=== PATIENT | male | born 1950 | race Caucasian/White ===

== ENCOUNTER 2017-12-23 16:47 | Emergency (ER) | payer MEDICARE ==
[~2017-12-23] VITALS: Ht 180.3 cm; Wt 98.5 kg
[~2017-12-23 16:47] MED LIST: ASPI81TA82 PO; CHOL1CAP6 PO; FENO50TA PO; FISH100020 PO; LORTA5 PO; LOSA50TA PO; NIAC1TAB PO; PRIL40CA PO; TAMS0.4C67 PO; VITA100017 PO
[2017-12-23 16:48] VITALS: BP 162/90; PULSE 66; RESP 16; TEMP 97.6; O2SAT 97
[2017-12-23 17:21] LABS: AUTOMATED NEUTROPHIL # 5.8 TH/MM3 (1.8-7.7); BASOPHIL % 0.2 % (0.0-2.0); EOSINOPHIL # 0.1 TH/MM3 (0-0.4); EOSINOPHIL % 0.6 % (0.0-4.0); HEMOGLOBIN 15.1 GM/DL (13.0-17.0); LYMPH % 24.2 % (9.0-44.0); LYMPHOCYTE # 2.1 TH/MM3 (1.0-4.8); MEAN CELL VOLUME 85.1 FL (80.0-100.0); MEAN CORPUSCULAR HEMOGLOBIN 29.8 PG (27.0-34.0); MEAN PLATELET VOLUME 7.5 FL (7.0-11.0); MONO % 7.8 % (0.0-8.0); MONOCYTE # 0.7 TH/MM3 (0-0.9); NEUT % 67.2 % (16.0-70.0); PLATELET COUNT 215 TH/MM3 (150-450); RED BLOOD COUNT 5.05 MIL/MM3 (4.50-5.90); RED CELL DISTRIBUTION WIDTH 13.6 % (11.6-17.2); WHITE BLOOD COUNT 8.7 TH/MM3 (4.0-11.0)
[2017-12-23 17:29] LABS: INTERNATIONAL NORMALIZED RATIO 1.1 RATIO; PROTHROMBIN TIME - PATIENT 11.1 SEC (9.8-11.6)
[2017-12-23 17:46] LABS: CALCIUM 9.4 MG/DL (8.5-10.1); CREATININE 1.21 MG/DL (0.60-1.30)
[2017-12-23] MEDS ORDERED: SODIUM CHLOR 0.9% 1000 ML INJ 1,000 ML IV SCH (18:33)
--- NOTE | 2017-12-23 18:39 | PD ---
HPI Chief Complaint: GI Complaint Time Seen by Provider: 18:32 Travel History International Travel<30 days: No Contact w/Intl Traveler<30days: No Traveled to known affect area: No History of Present Illness HPI 67-year-old male presents emergency department with ongoing and worsening left lower quadrant pain. Patient reports that he has had this pain intermittently over the past 4 days. Patient states he was recently seen by his senior solutions architect for a preop for a colonoscopy, when he does ride his difficulty to the GI specialist he was started on Cipro 500 mg daily as well as metronidazole 500 mg twice daily for presumed diverticulitis. Patient states this was 2 days ago. Patient states since that time the pain is continued to be bothersome and seemingly worsening. He has decreased appetite and vomiting 1 yesterday. He states he is still moving his bowels which is somewhat soft but he is not eating much as eating makes his pain worse. Patient denies any significant fever or chills. Pain is localized to the left anterior lower quadrant of the abdomen. Pain is currently about 8 out of 10. It was worse riding in the car. And he has no known drug allergies. PFSH Past Medical History Arthritis: Yes Cancer: No Cardiovascular Problems: Yes (HTN) High Cholesterol: Yes Coronary Artery Disease: Yes Endocrine: No GERD: Yes Genitourinary: No Hypertension: Yes Inguinal Hernia: Yes Neurologic: No Psychiatric: No Reproductive: No Respiratory: No Triglycerides - High: Yes Ulcer: Yes Past Surgical History Abdominal Surgery: Yes (BILATERAL INGUINAL HERNIA REPAIRS) Oral Surgery: Yes (uvula removed) Pacemaker: No Social History Alcohol Use: No Tobacco Use: No Substance Use: No Allergies-Medications (Allergen,Severity, Reaction): Coded Allergies: No Known Allergies (Unverified , 02/20/15) Reported Meds & Prescriptions Reported Meds & Active Scripts Active Hydrocodone/Acetaminophen 5 mg/325 mg 1 Tab Tab 1-2 Tab PO Q4H PRN Reported Vitamin C (Ascorbic Acid) 1,000 Mg Tab 1,000 Mg PO DAILY Fish Oil (Aspen-3 Fatty Acids) 1,000 Mg Cap 1,000 Mg PO Vitamin D-3 (Cholecalciferol) 1,000 Unit Cap 2 Cap PO DAILY Aspir-81 (Aspirin) 81 Mg Tab 81 Mg PO DAILY Losartan Potassium 50 MG (Losartan Potassium) 50 Mg Tab 50 Mg PO DAILY Prilosec 40 mg cap (Omeprazole) 40 Mg Cap 40 Mg PO DAILY Niacin ER (Niacin (Antihyperlipidemic)) 500 Mg Tab 500 Mg PO DAILY Tricor (Fenofibrate) 145 Mg Tab 145 Mg PO DAILY Flomax (Tamsulosin HCl) 0.4 Mg Cap 0.4 Mg PO DAILY Review of Systems Except as stated in HPI: all other systems reviewed are Neg General / Constitutional: No: Fever Eyes: No: Visual changes HENT: No: Headaches Cardiovascular: No: Chest Pain or Discomfort Respiratory: No: Shortness of Breath Gastrointestinal: Positive: Nausea, Vomiting, Abdominal Pain, Loss of Appetite , No: Diarrhea (1 yesterday) Genitourinary: No: Urgency, Frequency, Dysuria, Hematuria Musculoskeletal: No: Pain Skin: No Rash Neurologic: No: Weakness Psychiatric: No: Depression Endocrine: No: Polydipsia Hematologic/Lymphatic: No: Easy Bruising Physical Exam Narrative GENERAL: Patient appears in no obvious distress. SKIN: Warm and dry. Normal color. Normal turgor. No rash. HEAD: Atraumatic. Normocephalic. EYES: Pupils equal and round. No scleral icterus. No injection or drainage. ENT: No nasal bleeding or discharge. Mucous membranes pink and moist. Pharynx is clear. Airways patent NECK: Trachea midline. Supple and nontender. CARDIOVASCULAR: Regular rate and rhythm. RESPIRATORY: No accessory muscle use. Clear to auscultation. Breath sounds equal bilaterally. GASTROINTESTINAL: Abdomen soft, bowel sounds are somewhat quiet in all quadrants , nondistended. Patient has point tenderness in the left lower quadrant with mild rebound but no guarding. Hepatic and splenic margins not palpable. MUSCULOSKELETAL: Extremities without clubbing, cyanosis, or edema. No obvious deformities. NEUROLOGICAL: Awake and alert. No obvious cranial nerve deficits. Motor grossly within normal limits. Five out of 5 muscle strength in the arms and legs. Normal speech. PSYCHIATRIC: Appropriate mood and affect; insight and judgment normal. Data Data Last Documented VS Vital Signs Date Time Temp Pulse Resp B/P (MAP) Pulse Ox O2 Delivery O2 Flow Rate FiO2 12/23/17 16:48 97.6 66 16 162/90 (114) 97 Room Air Orders Orders Complete Blood Count With Diff (12/23/17 16:56) Basic Metabolic Panel (Bmp) (12/23/17 16:56) Coag Profile (12/23/17 16:56) Hepatic Functional Panel (12/23/17 18:20) Urinalysis - C+S If Indicated (12/23/17 18:20) Ct Abd/Pel W Iv Contrast(Rout) (12/23/17 18:20) Iv Access Insert/Monitor (12/23/17 18:33) Ecg Monitoring (12/23/17 18:33) Oximetry (12/23/17 18:33) NPO (12/23/17 18:33) Morphine Inj (Morphine Inj) (12/23/17 18:45) Ondansetron Inj (Zofran Inj) (12/23/17 18:45) Ciprofloxacin 400 Mg Premix (Cipro 400 M (12/23/17 18:45) Metronidazole 500 Mg Inj (Flagyl 500 Mg (12/23/17 18:45) Sodium Chlor 0.9% 1000 Ml Inj (Ns 1000 M (12/23/17 18:33) Sodium Chloride 0.9% Flush (Ns Flush) (12/23/17 18:45) Labs Laboratory Tests Test 12/23/17 17:03 White Blood Count 8.7 TH/MM3 Red Blood Count 5.05 MIL/MM3 Hemoglobin 15.1 GM/DL Hematocrit 43.0 % Mean Corpuscular Volume 85.1 FL Mean Corpuscular Hemoglobin 29.8 PG Mean Corpuscular Hemoglobin Concent 35.0 % Red Cell Distribution Width 13.6 % Platelet Count 215 TH/MM3 Mean Platelet Volume 7.5 FL Neutrophils (%) (Auto) 67.2 % Lymphocytes (%) (Auto) 24.2 % Monocytes (%) (Auto) 7.8 % Eosinophils (%) (Auto) 0.6 % Basophils (%) (Auto) 0.2 % Neutrophils # (Auto) 5.8 TH/MM3 Lymphocytes # (Auto) 2.1 TH/MM3 Monocytes # (Auto) 0.7 TH/MM3 Eosinophils # (Auto) 0.1 TH/MM3 Basophils # (Auto) 0.0 TH/MM3 CBC Comment DIFF FINAL Differential Comment Prothrombin Time 11.1 SEC Prothromb Time International Ratio 1.1 RATIO Activated Partial Thromboplast Time 26.8 SEC Blood Urea Nitrogen 14 MG/DL Creatinine 1.21 MG/DL Random Glucose 117 MG/DL Calcium Level 9.4 MG/DL Sodium Level 139 MEQ/L Potassium Level 3.9 MEQ/L Chloride Level 105 MEQ/L Carbon Dioxide Level 27.0 MEQ/L Anion Gap 7 MEQ/L Estimat Glomerular Filtration Rate 60 ML/MIN MDM Medical Decision Making Medical Screen Exam Complete: Yes Emergency Medical Condition: Yes Medical Record Reviewed: Yes Differential Diagnosis Left lower quadrant pain. Kidney stone. Diverticulitis. Narrative Course Patient is medically stable at time of exam. Labs ordered including CBC, CMP, and urinalysis. IV access is obtained the patient is given 400 mg Cipro IV as well as 500 mg metronidazole IV. Patient is given 2 mg morphine IV as well as 4 mg Zofran IV, in addition to 1000 mL normal saline bolus. CT of the abdomen and pelvis is ordered with IV contrast. Condition: Stable Brandon Newby Dec 23, 2017 18:39
[2017-12-23] MEDS ORDERED: SODIUM CHLORIDE 0.9% FLUSH 10 ML FLUSH IV FLUSH PRN (18:45)
[2017-12-23] MEDS ORDERED: MORPHINE SULFATE 4 MG/ML INJ IV PUSH ONE (18:45)
[2017-12-23] MEDS ORDERED: metroNIDAZOLE 500 MG INJ 100 ML IV ONE (18:45)
[2017-12-23] MEDS ORDERED: CIPROFLOXACIN 400 MG PREMIX 200 ML IV ONE (18:45)
[2017-12-23] MEDS ORDERED: ONDANSETRON HCL 4 MG/2 ML VIAL IVP ONE (18:45)
[2017-12-23 18:56] VITALS: O2SAT 98
[2017-12-23 20:03] LABS: AMORPHOUS SEDIMENT, URINE RARE; BILIRUBIN, URINE NEG (NEG); BLOOD, URINE MOD (NEG); GLUCOSE,URINE NEG (NEG); KETONE, URINE 10 mg/dL (NEG); MUCUS URINE FEW /lpf (OCC); NITRITE,URINE NEG (NEG); PH, URINE 5.5 (5.0-8.5); SQUAMOUS EPITHELIAL CELL URINE <1 /hpf (0-5); URINE COLOR YELLOW (YELLW/STRAW); URINE LEUKOCYTE ESTERASE TRACE (NEG)
[2017-12-23] MEDS ORDERED: IOHEXOL 350 MG/ML 10 ML VIAL (for RAD DIAG) IVCONTRAST ONE (20:37)
--- NOTE | 2017-12-23 21:21 | RADRPT ---
EXAM DATE/TIME: 12/23/2017 20:48 [facility] COMPARISON: No previous studies available for comparison. INDICATIONS : Abdomen pain. IV CONTRAST: 100 cc Omnipaque 350 (iohexol) IV ORAL CONTRAST: No oral contrast ingested. RADIATION DOSE: 15.1 CTDIvol (mGy) MEDICAL HISTORY : Hernia, inguinal. Cardiovascular disease Hypertension. SURGICAL HISTORY : Appendectomy. ENCOUNTER: Initial ACUITY: 1 day PAIN SCALE: 5/10 LOCATION: Bilateral abdomen. TECHNIQUE: Volumetric scanning of the abdomen and pelvis was performed. Using automated exposure control and ad justment of the mA and/or kV according to patient size, radiation dose was kept as low as reasonably achievable to obtain optimal diagnostic quality images. DICOM format image data is available electro nically for review and comparison. FINDINGS: Minimal dependent atelectasis in the lungs. Mild fatty liver. Probable 2.3 cm hemangioma left lobe li rayshawn. Spleen, adrenals, right kidney and pancreas unremarkable. There is a 3 mm calculus in the proximal left ureter with mild left-sided hydronephrosis and obstruct loree uropathy. No pelvic masses or adenopathy. No bladder calculi. Small hiatal hernia. CONCLUSION: 1. Left-sided obstructive uropathy and mild hydronephrosis secondary to an approximately 3 mm calculu s in the proximal left ureter. 2. Small right-sided bladder diverticulum. Small hiatal hernia. Osmar Cody MD on December 23, 2017 at 21:13 Board Certified Radiologist. This report was verified electronically.
[2017-12-23] MEDS ORDERED: ZOFR8TAB4 SL (21:37)
[2017-12-23] MEDS ORDERED: PERC5TAB12 PO (21:37)
[2017-12-23] MEDS ORDERED: TAMS5CAP PO (21:37)
--- NOTE | 2017-12-23 21:40 | PD ---
Physical Exam Date Seen by Provider: Dec 23, 2017 Time Seen by Provider: 21:38 Narrative GENERAL: This is a well-nourished, well-developed patient, in no apparent distress. SKIN: No rashes, ecchymoses or lesions. Warm and dry. HEAD: Atraumatic. Normocephalic. EYES: PERRL, EOMI, no discharge or injection. No scleral icterus. EARS: Clear NOSE: Nasal turbinates appear normal. THROAT: Mucosa pink and moist. Airway patent. NECK: Trachea midline. supple, moves head freely. LUNGS: Clear to auscultation. CV: Regular in rhythm. ABDOMEN: Soft and mild tenderness in the left lower quadrant to deep palpation. No guarding or rebound. EXT: No clubbing cyanosis or edema. Data Data Last Documented VS Vital Signs Date Time Temp Pulse Resp B/P (MAP) Pulse Ox O2 Delivery O2 Flow Rate FiO2 12/23/17 18:56 98 Room Air 12/23/17 16:48 97.6 66 16 Orders Orders Complete Blood Count With Diff (12/23/17 16:56) Basic Metabolic Panel (Bmp) (12/23/17 16:56) Coag Profile (12/23/17 16:56) Hepatic Functional Panel (12/23/17 18:20) Urinalysis - C+S If Indicated (12/23/17 18:20) Ct Abd/Pel W Iv Contrast(Rout) (12/23/17 18:20) Iv Access Insert/Monitor (12/23/17 18:33) Ecg Monitoring (12/23/17 18:33) Oximetry (12/23/17 18:33) NPO (12/23/17 18:33) Morphine Inj (Morphine Inj) (12/23/17 18:45) Ondansetron Inj (Zofran Inj) (12/23/17 18:45) Ciprofloxacin 400 Mg Premix (Cipro 400 M (12/23/17 18:45) Metronidazole 500 Mg Inj (Flagyl 500 Mg (12/23/17 18:45) Sodium Chlor 0.9% 1000 Ml Inj (Ns 1000 M (12/23/17 18:33) Sodium Chloride 0.9% Flush (Ns Flush) (12/23/17 18:45) Iohexol 350 Inj (Omnipaque 350 Inj) (12/23/17 20:37) Ed Discharge Order (12/23/17 21:32) Ketorolac Inj (Toradol Inj) (12/23/17 21:45) Labs Laboratory Tests Test 12/23/17 17:03 12/23/17 19:20 White Blood Count 8.7 TH/MM3 Red Blood Count 5.05 MIL/MM3 Hemoglobin 15.1 GM/DL Hematocrit 43.0 % Mean Corpuscular Volume 85.1 FL Mean Corpuscular Hemoglobin 29.8 PG Mean Corpuscular Hemoglobin Concent 35.0 % Red Cell Distribution Width 13.6 % Platelet Count 215 TH/MM3 Mean Platelet Volume 7.5 FL Neutrophils (%) (Auto) 67.2 % Lymphocytes (%) (Auto) 24.2 % Monocytes (%) (Auto) 7.8 % Eosinophils (%) (Auto) 0.6 % Basophils (%) (Auto) 0.2 % Neutrophils # (Auto) 5.8 TH/MM3 Lymphocytes # (Auto) 2.1 TH/MM3 Monocytes # (Auto) 0.7 TH/MM3 Eosinophils # (Auto) 0.1 TH/MM3 Basophils # (Auto) 0.0 TH/MM3 CBC Comment DIFF FINAL Differential Comment Prothrombin Time 11.1 SEC Prothromb Time International Ratio 1.1 RATIO Activated Partial Thromboplast Time 26.8 SEC Blood Urea Nitrogen 14 MG/DL Creatinine 1.21 MG/DL Random Glucose 117 MG/DL Calcium Level 9.4 MG/DL Sodium Level 139 MEQ/L Potassium Level 3.9 MEQ/L Chloride Level 105 MEQ/L Carbon Dioxide Level 27.0 MEQ/L Anion Gap 7 MEQ/L Estimat Glomerular Filtration Rate 60 ML/MIN Urine Color YELLOW Urine Turbidity HAZY Urine pH 5.5 Urine Specific [place] 1.028 Urine Protein TRACE mg/dL Urine Glucose (UA) NEG mg/dL Urine Ketones 10 mg/dL Urine Occult Blood MOD Urine Nitrite NEG Urine Bilirubin NEG Urine Urobilinogen LESS THAN 2.0 MG/DL Urine Leukocyte Esterase TRACE Urine RBC /hpf Urine WBC 1 /hpf Urine Squamous Epithelial Cells <1 /hpf Urine Amorphous Sediment RARE Urine Mucus FEW /lpf Microscopic Urinalysis Comment CULT NOT INDICATED MDM Medical Record Reviewed: Yes Supervised Visit with PIA: Yes Interpretation(s) Laboratory Tests Test 12/23/17 17:03 12/23/17 19:20 White Blood Count 8.7 TH/MM3 Red Blood Count 5.05 MIL/MM3 Hemoglobin 15.1 GM/DL Hematocrit 43.0 % Mean Corpuscular Volume 85.1 FL Mean Corpuscular Hemoglobin 29.8 PG Mean Corpuscular Hemoglobin Concent 35.0 % Red Cell Distribution Width 13.6 % Platelet Count 215 TH/MM3 Mean Platelet Volume 7.5 FL Neutrophils (%) (Auto) 67.2 % Lymphocytes (%) (Auto) 24.2 % Monocytes (%) (Auto) 7.8 % Eosinophils (%) (Auto) 0.6 % Basophils (%) (Auto) 0.2 % Neutrophils # (Auto) 5.8 TH/MM3 Lymphocytes # (Auto) 2.1 TH/MM3 Monocytes # (Auto) 0.7 TH/MM3 Eosinophils # (Auto) 0.1 TH/MM3 Basophils # (Auto) 0.0 TH/MM3 CBC Comment DIFF FINAL Differential Comment Prothrombin Time 11.1 SEC Prothromb Time International Ratio 1.1 RATIO Activated Partial Thromboplast Time 26.8 SEC Blood Urea Nitrogen 14 MG/DL Creatinine 1.21 MG/DL Random Glucose 117 MG/DL Calcium Level 9.4 MG/DL Sodium Level 139 MEQ/L Potassium Level 3.9 MEQ/L Chloride Level 105 MEQ/L Carbon Dioxide Level 27.0 MEQ/L Anion Gap 7 MEQ/L Estimat Glomerular Filtration Rate 60 ML/MIN Urine Color YELLOW Urine Turbidity HAZY Urine pH 5.5 Urine Specific [place] 1.028 Urine Protein TRACE mg/dL Urine Glucose (UA) NEG mg/dL Urine Ketones 10 mg/dL Urine Occult Blood MOD Urine Nitrite NEG Urine Bilirubin NEG Urine Urobilinogen LESS THAN 2.0 MG/DL Urine Leukocyte Esterase TRACE Urine RBC /hpf Urine WBC 1 /hpf Urine Squamous Epithelial Cells <1 /hpf Urine Amorphous Sediment RARE Urine Mucus FEW /lpf Microscopic Urinalysis Comment CULT NOT INDICATED Last 24 hours Impressions Abdomen/Pelvis CT 12/23/17 1820 Signed Impressions: Service Date/Time: Saturday, December 23, 2017 20:48 - CONCLUSION: 1. Left-sided obstructive uropathy and mild hydronephrosis secondary to an approximately 3 mm calculus in the proximal left ureter. 2. Small right-sided bladder diverticulum. Small hiatal hernia. Osmar Cody MD Differential Diagnosis MDM: High Differential diagnoses: Acute appendicitis, acute pancreatitis, diverticulitis, hepatitis, colitis, ischemic bowel, bowel instruction, nonspecific abdominal pain, gastroparesis, electrolyte abnormality, dehydration, drug-seeking, malingering Narrative Course IV access is obtained. Patient's given a liter bolus of saline, morphine IV. I was asked by the daytime provider to follow-up on the patient's laboratory testing CAT scan. Patient's CAT scan reveals a 3 mm proximal left ureteral kidney stone. He has mild [place]. I suspect the patient's kidney stone will pass. He'll be discharged home with Percocet, Zofran and Flomax. Patient's given 30 mg of Toradol at discharge. Patient verbalizes understanding and agrees with treatment plan of follow-up. He will follow-up with urology in the next few days. Diagnosis Primary Impression: acute left ureterolithiasis Referrals: Rusty Mcdowell MD 3 days Patient Instructions: General Instructions Departure Forms: Tests/Procedures Additional Instruction: Rest. Force fluids. Percocet for severe pain. Zofran for nausea. Flomax. 3 Advil every 6 hours. Follow-up with urology in the next few days. Strain all urine. Follow-up with your primary care doctor this week. Med/Other Pt SpecificInfo: Prescription(s) given Scripts Tamsulosin (Flomax) 0.4 Mg Cap 0.4 MG PO HS for Manage Prostate Problems, #14 CAP 0 Refills Prov: Garry Wynne MD 12/23/17 Ondansetron Odt (Zofran Odt) 8 Mg Tab 8 MG SL Q8H Y for NAUSEA OR VOMITING, #10 TAB 0 Refills Prov: Garry Wynne MD 12/23/17 Oxycodone-Acetaminophen (Percocet) 5-325 mg Tab 1 TAB PO Q4H Y for PAIN, #12 TAB 0 Refills Prov: Garry Wynne MD 12/23/17 Disposition: 01 DISCHARGE HOME Condition: Stable Osmar Diego Dec 23, 2017 21:40
[2017-12-23] MEDS ORDERED: KETOROLAC TROMETHAMINE 30 MG/ML (IVP) VIAL IV PUSH ONE (21:45)
[2017-12-24 01:33] LABS: ALBUMIN 4.4 GM/DL (3.4-5.0); DIRECT BILIRUBIN ADULT 0.2 MG/DL (0.0-0.2)
[2017-12-24 01:35] LABS: INDIRECT BILIRUBIN 0.6 MG/DL (0.0-0.8); TOTAL BILIRUBIN ADULT 0.8 MG/DL (0.2-1.0); TOTAL PROTEIN 7.9 GM/DL (6.4-8.2)
== END 2017-12-23 22:11 | disposition home or self-care (01) ==
LOC: NEPD 16:47
DX: N13.2 Hydronephrosis with renal and ureteral calculous obstruction (principal); I10 Essential (primary) hypertension; E78.00 Pure hypercholesterolemia, unspecified; I25.10 Atherosclerotic heart disease of native coronary artery without angina pectoris; K21.9 Gastro-esophageal reflux disease without esophagitis
CPT/HCPCS: 74177; 80048; 80076; 81001; 85025; 85610; 85730; 96365; 96367; 96375; 99284; J0744; J1885; J2270; J2405; J7030; Q9967

== ENCOUNTER → 2018-01-19 | Outpatient (CLI) | payer MEDICARE ==
[~2018-01-19] MED LIST changes: +PERC5TAB12 PO; +TAMS5CAP PO; +ZOFR8TAB4 SL
--- NOTE | 2018-01-19 11:21 | RADRPT ---
EXAM DATE/TIME: 01/19/2018 10:40 [facility] COMPARISON: No previous studies available for comparison. INDICATIONS : Evaluate position of left renal stone prior to lithotripsy MEDICAL HISTORY : Renal calculi. SURGICAL HISTORY : None. ENCOUNTER: Subsequent ACUITY: 1 day PAIN SCORE: 0/10 LOCATION: Left abdomen FINDINGS: Surgical clips overlie the right upper quadrant. There are no renal calculi visualized. The patient h as a history of a left mid ureteral calculus. On the current study the calculus is noted projecting t o the left of the L3-4 disc space just superior to the L4 transverse process. It measures 4.4 mm. CONCLUSION: Left mid ureteral calculus as above. Marky Agrawal MD on January 19, 2018 at 11:18 Board Certified Radiologist. This report was verified electronically.
--- NOTE | 2018-01-19 18:29 | EKG ---
Date Performed: 01/19/2018 Time Performed: 10:16:48 PTAGE: 67 years EKG: Sinus rhythm WITH FIRST DEGREE AV BLOCK MARKED LEFT AXIS DEVIATION INTRAVENTRICULAR CONDUCTION DELAY MINIMAL VOLT AGE CRITERIA FOR LVH, CONSIDER NORMAL VARIANT ABNORMAL ECG PREVIOUS TRACING : 02/20/2015 11.47 Since the prior tracing, there has been no significant das DOCTOR: Mindi Goel Interpretating Date/Time 01/19/2018 18:29:16
== END ==
LOC: HCAV 10:01
PROVIDERS: ATTEND Urology
DX: Z01.810 Encounter for preprocedural cardiovascular examination (principal); N20.0 Calculus of kidney; R94.31 Abnormal electrocardiogram [ECG] [EKG]
CPT/HCPCS: 74018; 93005